=== PATIENT | female | born 1950 | race Caucasian/White ===

== ENCOUNTER 2018-01-22 14:15 | Observation (INO) ==
[2018-01-22] MEDS ORDERED: *HR* HYDROcodone/Acet 5/325 mg TABLET PO PRN (16:41)
[2018-01-22] MEDS ORDERED: Naloxone 0.4 MG/ML INJ IVP PRN (16:41)
[2018-01-22] MEDS ORDERED: Acetaminophen 325 MG TABLET PO PRN (16:41)
[2018-01-22] MEDS ORDERED: Nitroglycerin 0.4 MG TAB.SUBL SL PRN (16:49)
--- NOTE | 2018-01-22 16:51 | Internal Med History&Physical ---
Date of Encounter: 01/22/18 Time of Encounter: 16:48 Internal Medicine - H&P: HPI Chief complaint: cp Admitted From: Hospital to Hospital Transfer Plans for Post Hospital Care: Home History of present illness: Ms. Javier is a 67 year old female past O history hypertension CO 2010- pacemaker placed history of arrhythmia-GERD diabetes. According to the patient proximally 7:30 this a.m. she was watching television when she developed a sharp pain left-sided chest radiating to left arm with tingling the pain would last about 6-7 seconds and then we would relieve however it continued to occur throughout the day. The pain was worse upon exertion she had associated symptoms of nausea and lightheadedness. She presented to the [facility] emergency department approximately 6 hours after onset of initial symptoms 8 out of 10 pain she was given 2 nitroglycerin as well as for baby aspirins and morphine which morphine did relieve her pain. EKG obtained sinus rhythm with T- wave inversion in leads 3 aVF chest x-ray with no acute process. Lab work unremarkable troponins are negative at this time. Patient was transferred to [facility] for further work up evaluation. Currently patient denies any chest pain patient -she is hemodynamically stable at this time Past Med Surg Social Fam HX - Past Medical History Medical history: arthritis, diabetes, GERD, hyperlipidemia, hypertension, kidney stones, myocardial infarction, thyroid disease, sudden cardiac Additional medical history: pacemaker 2010, gallbaldder surgery 2011, urinary incontinence Psychiatric history: no psych history - Past Surgical History Surgical History: appendectomy, cholecystectomy, pacemaker/AICD, other - Social History Smoking Status: Never smoker Smokeless Tobacco Status: No Alcohol use: none Drug use: none Internal Medicine - H&P: Meds Cyanocobalamin (Vitamin B-12) [Vitamin B-12] 1,000 mcg SL DAILY 01/18/15 [History] Furosemide [Lasix] 20 mg PO DAILY 01/18/15 [History] Latanoprost [Xalatan] 2.5 ml OP HS 01/18/15 [History] Levothyroxine [Synthroid] 112 mcg PO QAM 01/18/15 [History] Metoprolol [Lopressor] 25 mg PO BID 01/18/15 [History] Nitroglycerin [Nitrostat] 0.4 mg SL PRN PRN 01/18/15 [History] Omeprazole [PriLOSEC] 20 mg PO DAILY 01/18/15 [History] Ropinirole [Requip] 0.25 mg PO HS 01/18/15 [History] Simethicone [Gas-X] 80 mg PO TID 01/18/15 [History] Aspirin 81 mg PO DAILY 11/28/16 [History] Atorvastatin [Lipitor] 10 mg PO HS 11/28/16 [History] metFORMIN [Glucophage] 500 mg PO BIDWM #60 tablet 11/28/16 [Rx] dilTIAZem HCl [Diltiazem 24Hr Cd] 120 mg PO DAILY 03/12/17 [History] Amlodipine Besylate 2 mg PO DAILY 07/16/17 [History] Meclizine HCl [Verticalm] 25 mg PO QID PRN #20 tablet 07/16/17 [Rx] Allergy/AdvReac Type Severity Reaction Status Date / Time codeine Allergy Hives Verified 03/12/17 07:41 aspirin [ASA] AdvReac Vomiting Verified 03/12/17 07:41 All Systems PM: A 10-system review of systems was performed and is negative for pertinent findings except as documented above in the HPI. - Constitutional Constitutional: no chills, no fever(s), no night sweats - EENT Eyes: no change in vision, no discharge, no pain, no photophobia Ears: no ear discharge, no ear pain, no tinnitus Nose, mouth and throat: no dysphagia, no nasal discharge, no neck pain, no sore throat - Cardiovascular Cardiovascular ROS IM: chest pain, lightheadedness - Gastrointestinal Gastrointestinal: nausea, no abdominal pain, no diarrhea, no hematemesis, no hematochezia, no melena, no vomiting - Genitourinary Genitourinary: no change in urinary stream, no dysuria, no flank pain, no hematuria - Musculoskeletal Musculoskeletal ROS IM: no numbness, no tingling - Integumentary Integumentary IM: no rash, no unusual bruising - Neurological Neurological ROS: no confusion, no convulsions, no focal weakness, no numbness, no tingling, no tremor(s) - Constitutional Vitals: Temp Pulse Resp BP Pulse Ox 97.9 F 71 16 110/69 94 01/22/18 15:43 01/22/18 15:43 01/22/18 15:43 01/22/18 15:43 01/22/18 15:43 General appearance: Present: A&O X 3 Exam: . - Head Head exam: Present: atraumatic, normocephalic - Eye Eye exam: Present: PERRL, conjuntiva pink, sclera anicteric Pupils: Present: PERRL - Neck Neck exam general surgery: Present: supple, trachea midline. Absent: lymphadenopathy - Respiratory Respiratory exam: Present: CTAB. Absent: accessory muscle use, rales, rhonchi, wheezes - Cardiovascular Cardiovascular exam: Present: RRR, +S1, +S2. Absent: diastolic murmur, gallop, rubs, systolic murmur - GI/Abdominal GI/Abdominal exam: Present: normal bowel sounds, soft, no peritoneal signs. Absent: distended, tenderness - Extremities Exam Extremities exam: Present: warm, radial pulses palpable and symmetrical. Absent: calf tenderness, cyanotic, pedal edema - Neurological Exam Neurological exam: Present: CN II-XII intact, oriented X3, no focal deficits. Absent: pronater drift, facial droop, speech deficit - Skin Skin exam: Present: dry, intact - Assessment and plan (1) Chest pain at rest Current Visit: No Status: Acute Assessment and plan: Patient does have a history of past CO as well as pacemaker placement due to arrhythmias she also had a previous stress tests in 2015 which was negative for any ischemia or infarct. Presented with sharp chest pain that radiates down lef t arm with tingling that was intermittent-troponin was negative EKG with T-wave inversion and 3 aVF. She was given nitroglycerin as well as morphine which did relieve her chest pain. I did review this case with Dr Olmos recommends cardiac stress test -pending results of stress test consult cardiology as needed Patient will be nothing by mouth after midnight for cardiac stress test in a.m. He was cardiac monitoring Continue with aspirin and statin beta amberly Nitroglycerin as needed for chest pain Lipid profile in the a.m. (2) HTN (hypertension) Current Visit: Yes Status: Acute Assessment and plan: 1 we will continue home medications once they are reconciled Qualifiers: Hypertension type: essential hypertension Qualified Code(s): I10 - Essential (primary) hypertension (3) Diabetes mellitus Current Visit: Yes Status: Acute Assessment and plan: Patient has history of diabetes diet controlled we will check blood glucose before meals at bedtime with sliding scale insulin Diabetic diet Qualifiers: Diabetes mellitus type: type 2 Diabetes mellitus longterm insulin use: without longterm use Diabetes mellitus complication status: without complication Qualified Code(s): E11.9 - Type 2 diabetes mellitus without complications (4) DVT prophylaxis Current Visit: Yes Status: Acute Assessment and plan: Lovenox subcutaneous (5) EKG abnormalities Current Visit: No Status: Acute Assessment and plan: T-wave inversions in leads 3 and aVF. I did review with Dr. Loredo-patient will undergo cardiac stress test in a.m. continue to monitor on telemetry - Time Spent With Patient Total time spent is greater than 50% in coordination of care (as documented) at patient's floor/unit and/or counseling patient:
[2018-01-22] MEDS ORDERED: D5% in Water 1,000 ML IVC PRN (17:13)
[2018-01-22] MEDS ORDERED: Dextrose Gel 15 GM/37.5 ML TUBE PO PRN ×2 (17:13)
[2018-01-22] MEDS ORDERED: *HR* Dextrose 50 % in Water (Syg) 50 ML SYRINGE IVP PRN (17:13)
[2018-01-22 17:50] LABS: Chol/HDL Ratio 2.9 (0-4.9)
[2018-01-22] MEDS ORDERED: Insulin LISPRO 300 UNITS/3 ML VIAL SQ SCH (21:00)
[2018-01-23 00:28] LABS: Basophils % 0.4 %; Eosinophils # 0.1 K/mcL (0.0-0.6); Eosinophils % 0.8 %; Hematocrit 38.5 % (35.3-44.9); Hemoglobin 12.5 g/dL (11.5-15.4); Immature Granulocytes % 0.3 % (0-4); Lymphocytes # 2.2 K/mcL (0.6-4.6); Lymphocytes % 30.4 %; Mean Corpuscular HGB Conc 32.5 g/dL (31.6-35.5); Mean Corpuscular Hemoglobin 25.7 pg (28.0-33.3); Mean Corpuscular Volume 79.1 fL (83.0-100.0); Mean Platelet Volume 9.5 fL (9.4-12.4); Monocytes # 0.6 K/mcL (0.0-1.3); Monocytes % 8.2 %; Neutrophils # 4.4 K/mcL (1.6-8.9); Platelet Count 247 K/mcL (140-400); Red Blood Count 4.87 M/mcL (3.82-4.97); Red Cell Distribution Width 14.3 % (11.5-14.5); Segmented Neutrophils % 59.9 %
[2018-01-23 00:49] LABS: BUN/Creatinine Ratio 19 (6-26); Blood Urea Nitrogen 15 mg/dL (8-23); Calcium 9.4 mg/dL (8.6-10.3); Carbon Dioxide 25 mEq/L (23-29); Chloride 105 mEq/L (98-107); Glucose 124 mg/dL (70-105); Magnesium 2.1 mg/dL (1.6-2.6); Osmolality,Calculated 290 (280-300); Potassium 3.5 mEq/L (3.5-5.1); Sodium 139 mEq/L (136-145); eGFR For Non-African Americans > 60 (> 60)
[2018-01-23 01:03] LABS: Thyroid Stimulating Hormone 0.393 mcIU/mL (0.340-5.600)
[2018-01-23] MEDS ORDERED: Regadenoson 0.4 MG/5 ML SYRINGE IVP ONE (06:04)
[2018-01-23] MEDS ORDERED: *HR* Enoxaparin 40 MG/0.4 ML SYRINGE SQ SCH (07:00)
[2018-01-23] MEDS: Insulin LISPRO 300 UNITS/3 ML VIAL SQ SCH ×2 (08:48→14:31)
[2018-01-23] MEDS ORDERED: Aspirin 81 MG TAB.CHEW PO SCH (09:00)
[2018-01-23] MEDS ORDERED: Perflutren Lipid Microsphere 1.3 ML in 0.9 % Sodium Chloride 8.7 ML IVP ONE (11:29)
--- NOTE | 2018-01-23 11:53 | Discharge Summary ---
- NOTES TO OUTPATIENT PROVIDER Notes to Outpatient Provider: Pt admitted with chest pain. Echo and stress negative. To follow up as scheduled. Orders not resulted at time of discharge: Pending orders 01/22/18 16:47 EV echocardiogram Routine 01/22/18 17:07 NM isaiah perf SPECT multi [NM] Routine 01/23/18 06:00 ECG 12 lead ECG [ECG] AM 0600 Date of Encounter: 01/23/18 Time of Encounter: 11:51 - Discharge Diagnosis (1) HTN (hypertension) Priority: Secondary Status: Chronic Qualifiers: Hypertension type: essential hypertension Qualified Code(s): I10 - Essential (primary) hypertension (2) Diabetes mellitus Priority: Secondary Status: Chronic Qualifiers: Diabetes mellitus type: type 2 Diabetes mellitus superintendent container terminal insulin use: without shelter use Diabetes mellitus complication status: without complication Qualified Code(s): E11.9 - Type 2 diabetes mellitus without complications (3) Chest pain Priority: Primary Status: Ruled-out Qualifiers: Chest pain type: chest pain due to myocardial ischemia Ischemic chest pain type: unstable angina pectoris Qualified Code(s): I20.0 - Unstable angina Hospital course: Ms. Javier is a 67 year old female presented to ED with sharp chest pain. She was evaluated and placed in observation. Ms. Javier was placed in medsur. She was monitored on tele and had stress test which was negative for ischemia. Echo showed normal EF. She is now asymptomatic and afebrile and ready for discharge home. Discharge discussed with: patient, family - Time Spent with Patient Total time spent providing and/or coordinating discharge services: - Discharge Medications Home Medications: RX: Cyanocobalamin (Vitamin B-12) [Vitamin B-12] 1,000 mcg SL DAILY 01/18/15 [History] RX: Furosemide [Lasix] 20 mg PO DAILY 01/18/15 [History] RX: Latanoprost [Xalatan] 2.5 ml OP HS 01/18/15 [History] RX: Levothyroxine [Synthroid] 112 mcg PO QAM 01/18/15 [History] RX: Metoprolol [Lopressor] 25 mg PO BID 01/18/15 [History] RX: Nitroglycerin [Nitrostat] 0.4 mg SL PRN PRN 01/18/15 [History] RX: Omeprazole [PriLOSEC] 20 mg PO DAILY 01/18/15 [History] RX: Ropinirole [Requip] 0.25 mg PO HS 01/18/15 [History] RX: Simethicone [Gas-X] 80 mg PO TID 01/18/15 [History] RX: Aspirin 81 mg PO DAILY 11/28/16 [History] RX: Atorvastatin [Lipitor] 10 mg PO HS 11/28/16 [History] RX: metFORMIN [Glucophage] 500 mg PO BIDWM #60 tablet 11/28/16 [Rx] RX: dilTIAZem HCl [Diltiazem 24Hr Cd] 120 mg PO DAILY 03/12/17 [History] RX: Amlodipine Besylate 2 mg PO DAILY 07/16/17 [History] RX: Meclizine HCl [Verticalm] 25 mg PO QID PRN #20 tablet 07/16/17 [Rx] RX: Acetaminophen [Tylenol] 650 mg PO Q6HR PRN tablet 01/23/18 [Rx] Allergies/Adverse Reactions: Allergy/AdvReac Type Severity Reaction Status Date / Time codeine Allergy Hives Verified 03/12/17 07:41 aspirin [ASA] AdvReac Vomiting Verified 03/12/17 07:41 Date of admission: 01/22/18 15:22 Primary care physician: Brittny Gracia Discharging clinician: Valentino Rojas Anticipated date of discharge: 01/23/18 - Constitutional Vitals: Temp Pulse Resp BP Pulse Ox 98.1 F 77 14 124/72 97 01/23/18 11:44 01/23/18 11:44 01/23/18 11:44 01/23/18 11:44 01/23/18 11:44 General appearance: Present: A&O X 3 Exam: See below - Head Head exam: Present: normocephalic - Eye Eye exam: Present: EOMI, conjuntiva pink - ENT ENT exam: Present: normal exam - Respiratory Respiratory exam: Present: CTAB. Absent: rales, rhonchi, wheezes - Cardiovascular Cardiovascular exam: Present: RRR. Absent: tachycardia - GI/Abdominal GI/Abdominal exam: Present: soft. Absent: tenderness - Extremities Exam Extremities exam: Present: warm. Absent: tenderness - Neurological Exam Neurological exam: Present: alert, oriented X3, no focal deficits - Skin Skin exam: Present: dry, warm - Patient Status Disposition: Home, Self-Care Condition: Good Functional capacity at discharge: independent ambulation Overall status at discharge: patient is progressing back to baseline - Discharge Instructions Instructions: Chest Pain (DC) Follow Up With: Brittny Gracia MD [Primary Care Provider] - - Diet and Activity Activity: increase activity as tolerated Diet: advance to your usual diet
[2018-01-23 16:47] VITALS: BP 133/77
--- NOTE | 2018-01-26 21:54 | Electrocardiograph Report ---
[address] [address] Test Date: 2018-01-22 Pat Name: Daxa Javier Department: 114 Room: [facility] Gender: F Ambulatory Services Representative: LYNNE : 1950 Requested By: Annelise Chandler Order Number: [id number] Reading MD: Heather Gibson Measurements Intervals [place] Rate: 72 P: 57 HI: 189 QRS: -7 QRSD: 110 T: 16 QT: 413 QTc: 437 Interpretive Statements SINUS RHYTHM MINIMAL VOLTAGE CRITERIA FOR LVH, CONSIDER NORMAL VARIANT Electronically Signed On 01-26-2018 21:52:46 EST by Heather Gibson
== END 2018-01-23 17:13 | disposition home or self-care (01) ==
LOC: 3NENU → SUATTDRO 15:22
PROVIDERS: ADMIT Internal Medicine; ATTEND Internal Medicine